=== PATIENT | female | born 1970 | race Caucasian/White ===

== ENCOUNTER 2024-10-19 19:59 | Emergency (ER) | payer SELFPAY ==
[~2024-10-19] VITALS: Ht 157.5 cm; Wt 59.0 kg
[2024-10-19 20:11] VITALS: BP 129/94; PULSE 85; RESP 20; TEMP 36.9; O2SAT 100; O2SAT 96
[2024-10-19 20:31] LABS: BASOPHILS % 0.8 % (0.0-2.0); EOSINOPHILS % 0.2 % (0.0-5.0); HEMATOCRIT. 38.4 % (36.0-48.0); HEMOGLOBIN. 13.2 g/dL (12.0-16.0); LYMPHOCYTES % 12.9 % (20.0-50.0); MEAN PLATELET VOLUME 8.5 fl (7.4-10.4); MONOCYTES % 2.9 % (2.0-8.0); NEUTROPHILS % 83.2 % (40.0-76.0); PLATELET 223 x1000/uL (130-400); RED BLOOD CELL COUNT 4.37 mill/uL (4.2-5.4); RED CELL DISTRIBUTION WIDTH 13.4 % (11.6-14.6)
[2024-10-19 20:46] LABS: CREATININE 1.0 mg/dL (0.6-1.0)
[2024-10-19 20:47] LABS: UREA NITROGEN BLOOD 12 mg/dL (9-23)
[2024-10-19 20:48] LABS: ASPARTATE AMINOTRANSFERASE 19 IU/L (<34)
[2024-10-19 20:49] LABS: BILIRUBIN DIRECT < 0.1 mg/dL (<=3.0); BILIRUBIN TOTAL 0.4 mg/dL (0.1-1.0); PROTEIN TOTAL 7.2 g/dL (6.0-8.3)
[2024-10-19 20:56] LABS: HCG SCREEN NEGATIVE
[2024-10-19] MEDS: ONDANSETRON 4MG ODT PO ONE (21:02)
[2024-10-19] MEDS: KETOROLAC 15MG/ML VIAL IM ONE (21:05)
[2024-10-19 21:29] LABS: CLARITY URINE CLOUDY (CLEAR); COLOR URINE ORANGE (YELLOW); GLUCOSE URINE NEGATIVE (NEGATIVE); KETONES URINE 2+ (NEGATIVE); LEUKOCYTE ESTERASE URINE TRACE (NEGATIVE); NITRITE URINE NEGATIVE (NEGATIVE); OCCULT BLOOD URINE 3+ (NEGATIVE); PH URINE 8.0 (4.5-8.0); PROTEIN URINE 2+ (NEGATIVE); SPECIFIC GRAVITY URINE 1.012 (1.005-1.030); UROBILINOGEN URINE 0.2 E.U./dL (0.2-1.0)
[2024-10-19 21:50] LABS: BACTERIA URINE 1+; SQUAMOUS EPITHELIAL CELL URINE 1+ /lpf (RARE/1+)
[2024-10-19] MEDS ORDERED: SODIUM CHLORIDE 0.9% 1,000 ML IV ONE (22:30)
== END 2024-10-20 00:22 | disposition left against medical advice (07) ==
LOC: ER 19:59
DX: N20.0 Calculus of kidney (principal); N39.0 Urinary tract infection, site not specified; Z79.899 Other long term (current) drug therapy
CPT/HCPCS: 80076; 80048; 81003; 84703; 83690; 85025; 36415; 74176; 96372; 99285; J1885; J7030; Z7610 ×2